=== PATIENT | female | born 1985 ===

== ENCOUNTER 2018-06-18 06:18 | Day surgery (SDC) | payer BC ==
[~2018-06-18] VITALS: Ht 167.6 cm; Wt 68.0 kg
[2018-06-18] VITALS (13 sets, daily range): BP systolic 104–145; BP diastolic 58–90
--- NOTE | 2018-06-18 06:16 | History and Physical Report ---
DATE OF ADMISSION: 06/18/2018 NOTE: POOR AUDIO PREOPERATIVE DIAGNOSIS: A 32-year-old with a . HISTORY OF PRESENT ILLNESS: The patient is a 32-year-old G0, who presented to me originally in February of 2018 for a second opinion regarding cervical dysplasia that she has had for 2 years. At that point, she did not have any lower abdominal pain and she had a Pap smear with positive HPV and underwent a colposcopy in April 2018. When she came back for colposcopy in April, she complained of left lower quadrant pain, underwent an ultrasound, and was diagnosed with a 5 cm hemorrhagic cyst. Arrangements were made for her to come back for followup of the cyst, however, the patient continued to complain about increasing left lower quadrant pain. I saw her on 05/27/2018. At that point, hemorrhagic cyst was still there and laparoscopy and left ovarian cystectomy. The patient also underwent a , which was positive for a variant of very significant . The patient was extensively counseled regarding variant of acute significant pain, further genetic counseling at [facility]. Extensive discussion was performed with her partner regarding the low possibility of malignancy in the left ovary and a possible need for a left oophorectomy. PAST MEDICAL HISTORY: Cervical dysplasia. PAST SURGICAL HISTORY: None. ALLERGIES: None. SOCIAL HISTORY: The patient does not drink or smoke. She lives with her partner. contributory for a left lower quadrant pain and dyspareunia. Ultrasound consistent with a 6 cm left ovarian hemorrhagic cyst consistent with right endometrioma and there was no . The right ovary appeared within normal limits. Last ultrasound was performed on 06/15/2018. Her CA-125 was elevated to 102 on 05/29/2018. PHYSICAL EXAMINATION: GENERAL: Please note that the patient is a young female, in no acute distress. VITAL SIGNS: Height 67 inches and weight 150 pounds. Blood pressure 120/60, respiratory rate 18, and temperature 97.8. HEAD AND NECK: Pupils equal and reactive to light. LUNGS: Clear to auscultation bilaterally. CARDIAC: Regular rate and rhythm. ABDOMEN: Soft and nondistended. GENITOURINARY: Bimanual exam, left-sided tenderness. No cervical motion tenderness. Cervix within normal limits. EXTREMITIES: No cords. No cyanosis. No edema. ASSESSMENT: The patient left hemorrhagic cyst, left lower quadrant pain, probable endometrioma, and possibility of malignancy cannot be ruled out. PLAN: Plan is for diagnostic laparoscopy, left cystectomy, possible left oophorectomy, hysteroscopy, and D and C. Coleen Meneses M.D. DR: GLADYS JOB#: [id number] CC:
[~2018-06-18 06:18] MED LIST: ACETAMINOPHEN325 M1 ORAL; FLONASE ALLERG9.9 ML NASAL; LORATADINE10 M2 PO; MONTELUKAST SOD10 MG ORAL; NORCO 5-325 TA1 EACH ORAL
[2018-06-18] MEDS ORDERED: cefOXitin Sod 2 GM in D5W 110 ML IVPB ONE (07:00)
[2018-06-18] MEDS ORDERED: Zemuron 50mg/5ml Inj IV ONE (07:10)
[2018-06-18] MEDS ORDERED: fentaNYL 100 mcg/2 mL IV ONE ×2 (07:12→08:32)
[2018-06-18] MEDS ORDERED: Midazolam 2mg/2ml Inj ONE (07:12)
[2018-06-18] MEDS ORDERED: Propofol 200mg/20ml IV ONE (07:12)
[2018-06-18] MEDS ORDERED: Lidocaine 1% MPF 10mg/ml 5ml ONE (07:12)
[2018-06-18] MEDS ORDERED: Dexamethasone 4mg/ml vial ONE (07:13)
[2018-06-18] MEDS ORDERED: NS Irrig 1000ml ONE (07:30)
[2018-06-18] MEDS ORDERED: ProvayBlue 5mg/ml 10ml amp INJ ONE (07:30)
[2018-06-18] MEDS ORDERED: Sterile Water Irrig 1000ml IRRIG ONE (07:30)
[2018-06-18] MEDS ORDERED: LR 1000ml ONE (07:30)
--- NOTE | 2018-06-18 07:32 | Pre-Procedure Note/Attestation ---
Pre-Procedure Note/Attestation Complete Prior to Procedure Planned Procedure: left Indications for Procedure Pre-Operative Diagnosis: large left ovarian hemorrhagic cyst, llq pain Attestation I attest that I discussed the nature of the procedure; its benefits; risks and complications; and alternatives (and the risks and benefits of such alternatives ), prior to the procedure, with the patient (or the patient's legal direct customer service representative). I attest that, if there was a reasonable possibility of needing a blood transfusion, the patient (or the patient's legal direct customer service representative) was given the [facility] standardized written summary, pursuant to the [place] Blood Safety Act ([place] Health and Safety Code # 1645, as amended). I attest that I re-evaluated the patient just prior to the surgery and that there has been no change in the patient's H&P, except as documented below: Coleen Meneses MD Jun 18, 2018 07:32
[2018-06-18] MEDS ORDERED: Ropivacaine 5mg/ml Vial 30ml INJ ONE (07:34)
--- NOTE | 2018-06-18 07:37 | Anethesia Preoperative Eval ---
Anesthesia Pre-op PMH/ROS General Date of Evaluation: Jun 18, 2018 Time of Evaluation: 07:25 Anesthesiologist: Suzanne Zimmerman ASA Score: ASA 2 Mallampati Score Class I : Soft palate, uvula, fauces, pillars visible Class II: Soft palate, uvula, fauces visible Class III: Soft palate, base of uvula visible Class IV: Only hard plate visible Mallampati Classification: Class II Surgeon: Gideon Diagnosis: LEFT ovarian cyst Surgical Procedure: Laparoscopic LEFT ovarian cystectomy hysteroscopy Anesthesia History: none Family History: no anesthesia problems Allergies: Coded Allergies: ERYTHROMYCIN BASE (Verified Allergy, Severe, 06/17/18) HIVES Medications: see eMAR Patient NPO?: Yes NPO Date: Jun 18, 2018 NPO Time: 00:00 Past Medical History Cardiovascular: Denies: HTN, CAD, VA, valve dz, arrhythmia, other Pulmonary: Denies: asthma, COPD, LYN, other Gastrointestinal/Genitourinary: Reports: GERD, other - Hx of severe pelvic pain started Mar 2018, [facility]; Denies: CRI, ESRD Neurologic/Psychiatric: Reports: other - Migraines; Denies: dementia, CVA, depression/anxiety, TIA Endocrine: Reports: hypothyroidism - not currently on meds, Synthroid stopped 1 year ago; Denies: DM, steroids, other HEENT: Reports: other - sinusitits; Denies: cataract (L), cataract (R), glaucoma, ALUTIIQ (L), ALUTIIQ (R) Hematology/Immune: Reports: anemia; Denies: DVT, bleeding disorder, other Musculoskeletal/Integumentary: Denies: OA, RA, DJD, DDD, edema, other PMH Narrative: as above PSxH Narrative: breast augmentation, chin implant Anesthesia Pre-op Phys. Exam Physician Exam Last Vital Signs Date Time Temp Pulse Resp B/P (MAP) Pulse Ox O2 Delivery O2 Flow Rate FiO2 06/18/18 07:05 Room Air 06/18/18 06:57 98.1 76 18 111/79 100 Constitutional: NAD Neurologic: CN 2-12 intact Cardiovascular: RRR, no M/R/G Respiratory: CTA Gastrointestinal: S/NT/ND Airway Exam Mallampati Score: Class II MO: full Neck: FROM TMD: > 3FB ROM: full Teeth: intact Dentures: no upper, no lower Anesthesia Pre-op A/P Labs reviewed, see chart Urine Test Test 06/18/18 06:30 Urine HCG, Qualitative Negative (NEGATIVE) Risk Assessment & Plan Assessment: ASA 2, ok to proceed Plan: GETA Status Change Before Surgery: No Pre-Antibiotics Drug: Suzanne Ibrahim CRNA Jun 18, 2018 07:37
[2018-06-18] MEDS ORDERED: Tylenol #3 tab (300mg/30mg) ORAL PRN (07:45)
[2018-06-18] MEDS ORDERED: Metoclopramide 10mg/2ml Inj IVP PRN (07:45)
[2018-06-18] MEDS ORDERED: DiphenhydrAMINE 50mg/ml Inj IVP PRN (07:45)
[2018-06-18] MEDS ORDERED: HYDROmorphone 1mg/ml Carpuject SUBQ PRN (07:45)
[2018-06-18] MEDS ORDERED: D5 1/2NS 1,000 ML IV SCH (07:45)
[2018-06-18] MEDS ORDERED: Hydromorphone 0.5mg/0.5ml inj IVP PRN (08:45)
[2018-06-18] MEDS ORDERED: NS Irrig 1000ml IRRIG ONE (09:07)
[2018-06-18] MEDS ORDERED: Ketorolac 30mg Inj ONE (09:07)
[2018-06-18] MEDS ORDERED: NS 275ml IRRIG ONE (09:07)
[2018-06-18] MEDS ORDERED: Glycopyrrolate 0.2mg/ml 1ml Vial ONE (09:07)
[2018-06-18] MEDS ORDERED: Neostigmine 1mg/ml 10ml Inj ONE (09:07)
--- NOTE | 2018-06-18 09:47 | Immediate Post-Op Evaluation ---
Immediate Post-Op Evalulation Immediate Post-Op Evalulation Procedure: hysteroscopy, laparoscopic left ovarian cystectomy Date of Evaluation: Jun 18, 2018 Time of Evaluation: 09:45 IV Fluids: LR 1200 ml Estimated Blood Loss: 20 ml Urinary Output: 300 ml Blood Pressure Systolic: 145 Blood Pressure Diastolic: 90 Pulse Rate: 62 Respiratory Rate: 22 O2 Sat by Pulse Oximetry: 99 Temperature (Fahrenheit): 97.0 Pain Score (1-10): 4 Nausea: No Vomiting: No Complications none Patient Status: awake, reacts, no response, patent, extubated Drug: cefazolin 1000mg IV Given Within 1 Hr of Incision: Yes Time Given: 07:50 Suzanne Zimmerman CRNA Jun 18, 2018 09:47
--- NOTE | 2018-06-18 10:57 | 48 Hour Post Anesthesia Eval ---
Post Anesthesia Evaluation Procedure: hysteroscopy, laparoscopic left ovarian cystectomy Date of Evaluation: Jun 18, 2018 Time of Evaluation: 10:55 Blood Pressure Systolic: 104 0: 63 Pulse Rate: 62 Respiratory Rate: 17 Temperature (Fahrenheit): 97.4 O2 Sat by Pulse Oximetry: 95 Airway: patent Nausea: No Vomiting: No Pain Intensity: 2 Hydration Status: adequate Cardiopulmonary Status: stable Mental Status/LOC: patient returned to baseline Follow-up Care/Observations: per gyne Post-Anesthesia Complications: none Follow-up care needed: ready to discharge Suzanne Zimmerman CRNA Jun 18, 2018 10:57
[2018-06-18] MEDS ORDERED: HYDROcodone/Acetamin 5/325 tab ORAL PRN (12:00)
--- NOTE | 2018-06-19 16:48 | Brief Operative Note ---
Immediate Post Operative Note Operative Note Pre-op Diagnosis: large left ovarian hemorrhagic cyst, llq pain Procedure: LAPAROSCOPIC LEFT OVARIAN CYSTECTOMY, LYSIS OF ADHESIONS, ENTEROLYSIS, HYSTEROSCOPY, DILATION AND CURETTAGE Post-op Diagnosis: LEFT 6 CM HEMORRHAGIC CYST C/W ENDOMETRIOMA AND DENSE ADHESIONS BETWEEN BOWEL AND LEFT ADNEXAE AND BOWEL AND ANTERIOR ABDOMINAL WALL Surgeon: COLEEN MENESES Bank Teller: IFEANYI KOENIG Anesthesia: general Specimen: yes Complications: none Condition: stable Fluids: CRYSTALLOID Estimated Blood Loss: volume - 150 CC Drains: none Implant(s) used?: No Coleen Meneses MD Jun 19, 2018 16:48
--- NOTE | 2018-06-20 01:16 | Operative Note - Dictated ---
DATE OF OPERATION: 06/19/2018 NOTE: POOR AUDIO PREOPERATIVE DIAGNOSES: 1. Large left hemorrhagic cyst. 2. Left lower quadrant pain. POSTOPERATIVE DIAGNOSES: 1. Large left hemorrhagic cyst. 2. Left lower quadrant pain. 3. Left hemorrhagic cyst consistent with endometrioma, dense adhesions between left ovary and bowel adhesions between small bowel and anterior abdominal wall adhesions between right ovary and tube and right pelvic sidewall. 4. Polypoid endometrium. 5. Left tube with obvious free spill and right tube looked normal after lysis of adhesions, but there was no free spill secondary to kinking in isthmic portion. PROCEDURES: 1. Laparoscopic left cystectomy. 2. Extensive lysis of adhesions. 3. Enterolysis. 4. Chromopertubation. 5. Hysteroscopy. 6. D and C. ANESTHESIA: General. SURGEON: Coleen Meneses M.D. WEIGHER OPERATOR: Zena Jackson M.D. ANESTHESIOLOGIST: Suzanne Zimmerman CRNA. ESTIMATED BLOOD LOSS: 150 mL. COMPLICATIONS: None. PROCEDURE IN DETAIL: After ensuring informed consent, the patient was taken to the operating room where general anesthesia was induced. The patient was sterilely prepped and draped, and placed in dorsal lithotomy position with legs up in Brian stirrups and . First, weighted speculum was placed in the vagina. Cervix was dilated to an 8 Hegar dilator. Hysteroscope was placed inside the uterine cavity. Uterine cavity was distended with normal saline. Polypoid-type endometrium was observed versus acute polyp and fractional curettage was performed. HUMI-type manipulator was placed inside the uterine cavity. Next, attention was turned to the abdomen where a small incision was made inside the umbilicus after infiltration with Marcaine. Next, Veress needle was placed inside the peritoneal cavity. Peritoneal cavity was distended with CO2 gas. After this, a 5 mm trocar was placed inside the umbilicus and intraperitoneal placement the laparoscope. Next, left lateral 5 mm trocar was placed under direct visualization and a suprapubic 5 mm trocar was placed under direct visualization. Next, pelvis was explored. There were adhesions between left ovary and pelvic side wall and there was adhesion between small bowel and anterior abdominal wall. First, the left ovary was incised was identified and peeled off from underlying ovarian stroma. The cyst was removed whole, but ruptured and suctioned off and pelvis was copiously irrigated with two liters of normal saline. Next, once the cyst wall was removed, excellent hemostasis was assured and repaired with bipolar cautery. Next, using both blunt and sharp dissection, the ovary was detached from bowel and posterior uterus until that ovary was completely freed and the tube was visualized . Next, likewise using a blunt and sharp dissection removed and right ovary and tube were mobilized, which appeared to be normal. Next, attention was turned to the bowel attached to the anterior pelvic wall, which was sharply taken down. Excellent hemostasis was assured. Next, chromopertubation was performed. Left tube still freely. Right tube ____ appeared to be kinked at the isthmic portion and manipulation allowed free spillage to be seen. Next, the pelvis was irrigated with another 2 liters of normal saline. All the irrigant was suctioned off. All trocars were removed under direct visualization. The skin was closed with 4-0 Monocryl and Steri-Strips. At the end of the procedure, all instruments and lap counts were correct x2. Coleen Meneses M.D. DR: ALEJANDRO JOB#: [id number] CC:
== END 2018-06-18 14:10 | disposition home or self-care (01) ==
LOC: SUR 06:18
DX: N80.1 Endometriosis of ovary (principal); N73.6 Female pelvic peritoneal adhesions (postinfective); E03.9 Hypothyroidism, unspecified; D64.9 Anemia, unspecified; G43.909 Migraine, unspecified, not intractable, without status migrainosus; Z88.1 Allergy status to other antibiotic agents
CPT/HCPCS: 58558; 58662; 81025; J0690; J1100; J1170; J1885; J2250; J2405; J2704; J2710; J2765; J2795; J3010; J7050; 94003; 94150